=== PATIENT | male | born 1960 | race Caucasian/White ===

== ENCOUNTER 2018-12-22 22:04 | Emergency (ER) | payer MEDICARE, MEDICAID, SELFPAY ==
[2018-12-22 22:13] VITALS: BP 125/85; PULSE 124; RESP 24; TEMP 36.6; O2SAT 96
[2018-12-22 22:30] VITALS: BP 114/87
--- NOTE | 2018-12-22 22:30 | PC.NURSE ---
attempted to put an IV in the patient and get labs. patient states I don't want an IV. I told the patient that he was pooping blood and that we needed to get some lab work and give him some medication. He stated I do not want an IV. I do not want any help. provider notified and aware that the patient declined treatment.
[2018-12-22 23:00] VITALS: BP 114/87; RESP 23
--- NOTE | 2018-12-22 23:12 | ED.GIBLEED ---
HPI - GI Bleed General Chief complaint: GI Bleed Stated complaint: C-Diff Time Seen by Provider: 12/22/18 22:08 Source: EMS and old records reviewed Mode of arrival: EMS History of Present Illness HPI Narrative: Patient is a 58-year-old male presenting from [facility]. He has a history of cirrhosis presenting with on coffee ground emesis in currently being treated for C. diff. Staff states that he is normally confused he has a legal guardian and typically refuses care this evening they noticed a significant amount of coffee-ground emesis he is a DNR, comfort measures and do not transport to ER however they said they discussed with the guardian who wanted him transferred. Patient denies any pain. He does have some blood around his lips. He denies any chest pain or shortness of breath. MD complaint: coffee ground emesis Related Data Previous Rx's Medication Instructions Recorded ondansetron 4 mg PO Q6-8H PRN #10 tab 12/22/18 Allergies Allergy/AdvReac Type Severity Reaction Status Date / Time No Known Drug Allergies Allergy Verified 12/22/18 22:13 Review of Systems Review of Systems ROS Unobtainable: All systems reviewed & are unremarkable except as noted in HPI and below Constitutional Denies chills, Denies fever(s), Denies lethargy and Denies weakness Eyes Denies change in vision, Denies eye discharge, Denies irritation and Denies loss of vision Cardiovascular Denies chest pain, Denies irregular heart rhythm, Denies lightheadedness, Denies palpitations, Denies dyspnea, Denies dyspnea on exertion and Denies orthopnea Respiratory Denies cough, Denies dyspnea, Denies dyspnea on exertion and Denies wheezing Gastrointestinal Gastrointestinal: Reports as per HPI Genitourinary Denies hematuria, Denies flank pain, Denies urinary incontinence and Denies urinary urgency Musculoskeletal Denies back pain, Denies muscle weakness, Denies numbness and Denies tingling Integumentary/Breasts Denies pruritus, Denies erythema, Denies rash and Denies wounds Neurologic Denies loss of vision, Denies numbness, Denies tingling and Denies weakness Endocrine Denies palpitations Allergic/Immunologic Denies wheezing PFSH Medical History Cirrhosis (Acute) Social History housing: half-way Social History housing: half-way Exam Initial Vital Signs Initial Vital Signs: Vital Signs Temperature 97.9 F 12/22/18 22:13 Pulse Rate 124 H 12/22/18 22:13 Respiratory Rate 24 12/22/18 22:13 Blood Pressure 125/85 12/22/18 22:13 Pulse Oximetry 96 12/22/18 22:13 Gen.: alert overweight male HEENT: head is atraumatic gross blood noted around lips Neck: supple no JVD Lungs: clear bilaterally no wheezes rales or rhonchi Cardiac: tachycardic no murmurs Abdomen: large ventral hernia noted non reducible other abdomen is soft nontender no guarding or rebound Extremities bilateral BKA peripheral pulses intact no gross bony deformity Neurologic: patient is alert able to answer some questions. He is not aware of where he is or the circumstances. Thinks that he still lives in his trailer his. Course Orders Ordered: Discontinued Medications Sodium Chloride (Normal Saline 0.9%) 1,000 mls @ 100 mls/hr IV CONT KHADIJAH Ondansetron HCl (Zofran) 4 mg IV NOW ONE Stop: 12/22/18 22:20 Pantoprazole Sodium (Protonix) 40 mg IV NOW ONE Stop: 12/22/18 22:38 Vital Signs - 8 hr 12/22/18 22:13 12/22/18 22:30 12/22/18 23:00 Temperature 97.9 F Pulse Rate 124 H Respiratory Rate 24 23 Blood Pressure 125/85 Blood Pressure [Left Arm] 114/87 114/87 Pulse Oximetry 96 12/23/18 00:13 Temperature Pulse Rate 126 H Respiratory Rate 25 H Blood Pressure 104/78 Blood Pressure [Left Arm] Pulse Oximetry 95 MDM - GI Bleed Lab Data Point of Care Testing Stool Occult Blood Positive [facility] Narrative Medical decision making narrative: I discussed case with on-call guardian is for poly. He is stating that she talked it over with the patient's actual guardian requested and that is some initial workup be done including blood work and CT scan. Once more information is known they will decide how much further they would like to proceed. Patient is adamantly refusing any kind of blood work. According to nursing staff at the care facility this does seem to be his normal. Patient states that he has no pain anything that anyone does does not help. He is made aware that he is likely bleeding internally. He denies any nausea. he is requesting that he just be return back. He does seem to have some capacity, he wants nothing done because only prolonged the inevitable. I have called and spoken with guardian. She states cannot force patient have anything done he does not want to or is not agreeable to. Understands that patient will be sent back. I have called and spoken with the nurse caring for him at [facility]. updated her on the guardian conversations and patient wishes. She understands. I strongly requested the patient have a consultation to hospice. She understands and agrees. Discharge Plan Departure Patient Disposition: Assisted Living Clinical Impression: Vomiting Qualifiers: Vomiting type: unspecified Vomiting Intractability: non-intractable Nausea presence: without nausea Qualified Code(s): R11.11 - Vomiting without nausea Discharge Date/Time: 12/23/18 00:13 Interventions: ED Discharge Assessment Last Done: 12/23/18 00:13 Activity Restrictions/Additional Instructions: *You have been diagnosed with vomiting *What to do: patient refused any workup. Guardian is made aware of his patient's decisions. Strongly recommend hospice consult. *Continue to take medications as directed Zofran 4 mg sublingual his every 6-8 hours if needed for nausea or vomiting *Follow up with your primary care provider in 2-3 days *Return to ER if you should have any new, worsening or concerning symptoms Prescriptions: New ondansetron 4 mg tablet,disintegrating 4 mg PO Q6-8H PRN (Reason: nausea and vomiting) Qty: 10 RF: 0
[2018-12-23 00:13] VITALS: BP 104/78; PULSE 126; RESP 25; O2SAT 95
--- NOTE | 2018-12-23 01:16 | PC.NURSE ---
patient who is a poor historian states that he has been pooping coffee not blood. when patient arrived he had a large soft bowel movement that was bright red blood tinged.
== END 2018-12-23 00:13 ==
PROVIDERS: Emergency Provider Emergency Medicine
DX: R11.11 Vomiting without nausea (principal)
CPT/HCPCS: 82272; 99283